=== PATIENT | female | born 1995 | race Two or more races ===

== ENCOUNTER 2024-05-13 20:01 | Emergency (ER) | payer MEDICAID, SELFPAY ==
[2024-05-13 20:02] VITALS: BMI 28.9
[2024-05-13 20:47] VITALS: BP 152/91; PULSE 88; RESP 20; TEMP 36.9; O2SAT 99
--- NOTE | 2024-05-13 21:01 | EDNOTE_ITS ---
<Statement entered by Marcie Sanchez MD - 05/14/24 19:43> As co-signing physician, I was present and available for consult prn. I concur with the plan and care as documented by the midlevel provider. ED General RME/HPI General Chief complaint: General Adult/Misc Complain Stated complaint: PT TOOK TO MANY PILLS Time Seen by Provider: 05/13/24 20:53 Source: patient Arrival date/time: 05/13/24 20:01 28-year-old female presents emergency department reporting taking vitamin D2 1.25 mg a total of 9 doses daily and was supposed to be taking a weekly. Patient denies any fever, chills, cough, chest pain, shortness of breath, nausea vomiting, diarrhea, or any other associated symptom. Patient just endorses shakiness and anxious. Poison control called with any reported unlikely to cause acute symptoms but may check CMP panel with electrolytes and phosphorus and if those are okay can be safely discharged home and follow-up with primary care provider. Mode of arrival: ambulatory Limitations: no limitations Related Data Home Medications ?Medication ?Instructions ?Recorded ?Confirmed No Known Home Medications 06/21/18 06/21/18 Allergies Allergy/AdvReac Type Severity Reaction Status Date / Time No Known Allergies Allergy Verified 06/20/18 23:04 Review of Systems Review of Systems Systems Reviewed: All systems reviewed, normal except as documented Constitutional Constitutional: Reports system reviewed and no additional complaints, except as documented, Denies body ache(s), Denies chills and Denies fever(s) Eyes Eyes: Reports system reviewed and no additional complaints, except as documented and Denies change in vision ENT Ears, Nose, Mouth, and Throat: Reports system reviewed and no additional complaints, except as documented, Denies disequilibrium, Denies dizziness, Denies sore throat and Denies vertigo Cardiovascular Cardiovascular: Reports system reviewed and no additional complaints, except as documented, Denies chest pain and Denies dyspnea Respiratory Respiratory: Reports system reviewed and no additional complaints, except as documented, Denies chest congestion, Denies cough and Denies dyspnea Gastrointestinal Gastrointestinal: Reports system reviewed and no additional complaints, except as documented, Denies abdominal pain, Denies nausea and Denies vomiting Musculoskeletal Musculoskeletal: Reports system reviewed and no additional complaints, except as documented, Denies abnormal gait and Denies arthralgias Integumentary/Breasts Skin/Breast: Reports system reviewed and no additional complaints, except as documented, Denies erythema, Denies rash and Denies wounds Neurologic Neurologic: Reports system reviewed and no additional complaints, except as documented, Denies abnormal gait, Denies disequilibrium, Denies dizziness and Denies vertigo Psychiatric Psychiatric: Reports anxiety and Reports other (Shaky) Past Medical History Past Medical History CARDIAC: Negative Congestive Heart Failure RESPIRATORY: Negative Chronic Obstructive Pulmonary Disease (COPD) GENITOURINARY: Negative Renal Disease ENDOCRINE: Negative Diabetes Mellitus Type 1 or Diabetes Mellitus Type 2 Social History SMOKING STATUS: Never smoker ED Exam General Limitations: Present no limitations General appearance: Present alert and in no apparent distress Head Head exam: Present atraumatic Eye Eye exam: Present normal appearance, PERRL and EOMI ENT ENT exam: Present normal exam, normal oropharynx and mucous membranes moist Neck Neck exam: Present normal inspection, full ROM and trachea midline Chest Chest inspection: Present normal inspection and symmetric chest wall rise Respiratory Respiratory exam: Present normal lung sounds bilaterally Cardiovascular Cardiovascular exam: Present regular rate, normal rhythm and normal heart sounds Abdominal Exam Abdominal exam: Present soft and normal bowel sounds Extremities Exam Extremities exam: Present normal inspection and full ROM Back Exam Back exam: Present normal inspection and full ROM Neurological Exam Neurological exam: Present alert, oriented X3 and CN II-XII intact Psychiatric Psychiatric exam: Present normal affect and normal mood Skin Skin exam: Present warm, dry, intact and normal color Course Quality Measures none Orders Category Date Time Status CBC Stat Lab 05/13/24 21:17 Completed CMP [Comprehensive Metabolic Panel] Stat Lab 05/13/24 21:17 Completed Mag [Magnesium] Stat Lab 05/13/24 21:17 Completed Phosphorous Stat Lab 05/13/24 21:17 Completed Vital Signs Vital signs: Vital Signs Temperature 98.4 F 05/13/24 20:47 Pulse Rate 88 05/13/24 20:47 Respiratory Rate 20 05/13/24 20:47 Blood Pressure 152/91 H 05/13/24 20:47 Pulse Oximetry (%) 99 05/13/24 20:47 Oxygen Delivery Method Room Air 05/13/24 20:47 99% room air within normal limits MDM Patient data External records reviewed:: [facility] previous records Clinical information provided by:: patient Social determinants that could affect healthcare access:: none Patient has the following chronic illnesses:: See chart How is presenting disease/condition affected by chronic disease/condition?: u neffected by Evaluation data The following diagnostics were reviewed and interpreted by me:: lab results Lab and/or radiology exams considered but not ordered:: Ordered Interpretation Summary: Interpreted by me Medications Medications considered but not ordered:: N/A Medication administrations:: N/A Consultations Consultation(s) initiated? (list below): No Diagnosis Differential Diagnosis ED Complaint MDM: Medication overdose Most likely diagnosis given after review of the tests above:: Accidental drug ingestion Admission Indicated Admission indicated?: not indicated Explain why admission is indicated or not indicated:: No admission criteria Admission Request Was there a request for admission?: No Disposition Plan Disposition Plan: Discharge Discharge Attestation Discharge Attestation: The patient and all family members were given an opportunity to ask questions and understood the discharge instructions. Discharge instructions specifically effects, indications for sooner follow up or return to the emergency department, and the expected course of current diagnosis. Patient condition: Stable Medical Decision Making MDM Narrative MDM Narrative: 28-year-old female presents emergency department reporting taking vitamin D2 1.25 mg a total of 9 doses daily and was supposed to be taking a weekly. Patient denies any fever, chills, cough, chest pain, shortness of breath, nausea vomiting, diarrhea, or any other associated symptom. Patient just endorses shakiness and anxious. Poison control called with Manuel reported unlikely to cause acute symptoms but may check CMP panel with electrolytes and phosphorus and if those are okay can be safely discharged home and follow-up with primary care provider. Patient denies any SI or HI. CBC was unremarkable. CMP was unremarkable for any electrolyte abnormalities or elevated LFTs. Patient discharged and instructed to stop taking vitamin D until seen by primary care provider. Instructed to return to emergency department for any worsening symptoms or as needed. Differential Diagnosis Differential Diagnosis: Medication overdose Lab Data 05/13/24 21:17 05/13/24 21:17 Labs: Lab Results 05/13/24 Range/Units 21:17 WBC 12.8 H (3.6-11.0) Thou/mm3 RBC 4.60 (4.00-5.20) Miln/mm3 Hgb 13.2 (12.0-16.0) g/dL Hct 40.8 (36.0-46.0) % MCV 89 (80-100) fL MCH 28.7 (25.0-35.0) pg MCHC 32.4 (31.0-37.0) g/dl RDW Std Deviation 44.8 (36.4-46.3) fL Plt Count 300 (140-440) Thou/mm3 Neut % (Auto) 54 (37-80) % Lymph % (Auto) 35 (10-50) % [place] % (Auto) 9 (0-12) % Eos % (Auto) 2 (0-10) % Baso % (Auto) 1 (0-2.5) % Neut # (Auto) 6.8 (1.8-7.7) Thou/mm3 Lymph # (Auto) 4.5 (1.0-4.8) Thou/mm3 [place] # (Auto) 1.1 H (0.0-0.8) Thou/mm3 Eos # (Auto) 0.2 (0.0-0.5) Thou/mm3 Baso # (Auto) 0.1 (0.0-0.2) Thou/mm3 Immature Gran # (Auto) 0.04 H (0.00-0.00) Thou/mm3 Absolute Nucleated RBC 0.00 (0.00-0.00) Thou/mm3 Immature Gran % 0 (0-0) % Nucleated RBC % 0 (0) /100 WBC Sodium 137 (136-145) mMol/L Potassium 4.1 (3.4-5.1) mMol/L Chloride 104 (98-107) mMol/L Carbon Dioxide 26.8 (20.0-31.0) mMol/L Anion Gap 6 L (7-16) BUN 15 (9-23) mg/dL Creatinine 0.8 (0.6-1.3) mg/dL Estim Creat Clear Calc 90.3 (>60) mL/min eGFR > 60 (60 - ) See Note BUN/Creatinine Ratio 19 (12-20) Ratio Glucose 93 (74-106) mg/dL Calculated Osmolality 274 L (275-295) Calcium 9.7 (8.3-10.6) mg/dL Corrected Calcium 9.7 (8.5-10.1) mg/dL Phosphorus 3.0 (2.4-5.1) mg/dL Magnesium 2.2 (1.6-2.6) mg/dL Total Bilirubin 0.4 (0.3-1.2) mg/dL AST 18 (0-34) U/L ALT 18 (10-49) U/L Alkaline Phosphatase 90 (46-116) U/L Total Protein 7.7 (5.7-8.2) gm/dL Albumin 5.0 (3.5-5.0) gm/dL Globulin 2.7 (2.3-3.5) gm/dL Albumin/Globulin Ratio 1.9 (1.2-2.2) Discharge Plan Plan Patient Disposition: HOME (Self Care) Disposition Comment: Stable Prescriptions/Referrals Prescriptions/Med Rec: No Action No Known Home Medications Referrals: Temporary Provider,ED [Physician] - In 1 week Problem List Clinical Impression: Accidental drug ingestion Patient/Caregiver Discharge Instructions Discharge Activity: activity as tolerated Education Materials: ED Accidental Ingestion Nontoxic Adult Additional Instructions: Stop taking vitamin D until instructed by primary care provider. Follow-up with primary care provider in 2 to 3 days. Return to the emergency department for any worsening symptoms or as needed. Print Language: Dominican Stand Alone Forms: Maryann Award Info., Patient Portal Info Letter PA/CARSON Supervising Physician PA/CARSON Supervising Physician: Dr. Sanchez
[2024-05-13 21:55] LABS: Alanine Aminotransferase 18 U/L (10-49); Albumin/Globulin Ratio 1.9 (1.2-2.2); Alkaline Phosphatase 90 U/L (46-116); Anion Gap 6 (7-16); Aspartate Amino Transferase 18 U/L (0-34); BUN/Creatinine Ratio 19 Ratio (12-20); Bilirubin,Total 0.4 mg/dL (0.3-1.2); Blood Urea Nitrogen 15 mg/dL (9-23); Calcium 9.7 mg/dL (8.3-10.6); Calcium (Corrected) 9.7 mg/dL (8.5-10.1); Carbon Dioxide 26.8 mMol/L (20.0-31.0); Chloride 104 mMol/L (98-107); Creatinine (Component) 0.8 mg/dL (0.6-1.3); Estimated Creatinine Clearance 90.3 mL/min (>60); Globulin 2.7 gm/dL (2.3-3.5); Glucose 93 mg/dL (74-106); Magnesium 2.2 mg/dL (1.6-2.6); Osmolality,Calculated 274 (275-295); Potassium 4.1 mMol/L (3.4-5.1); Sodium 137 mMol/L (136-145); Total Protein 7.7 gm/dL (5.7-8.2); eGFR > 60 See Note
[2024-05-13 22:13] LABS: Basophils # (Auto) 0.1 Thou/mm3 (0.0-0.2); Basophils % (Auto) 1 % (0-2.5); Eosinophils # (Auto) 0.2 Thou/mm3 (0.0-0.5); Eosinophils % (Auto) 2 % (0-10); Hematocrit 40.8 % (36.0-46.0); Hemoglobin 13.2 g/dL (12.0-16.0); Immature Granulocytes % (Auto) 0 % (0-0); Immature Granulocytes Auto 0.04 Thou/mm3 (0.00-0.00); Lymphocytes # (Auto) 4.5 Thou/mm3 (1.0-4.8); Lymphocytes % (Auto) 35 % (10-50); Mean Corpuscular HGB Conc 32.4 g/dl (31.0-37.0); Mean Corpuscular Hemoglobin 28.7 pg (25.0-35.0); Mean Corpuscular Volume 89 fL (80-100); Monocytes # (Auto) 1.1 Thou/mm3 (0.0-0.8); Monocytes % (Auto) 9 % (0-12); Neutrophils # (Auto) 6.8 Thou/mm3 (1.8-7.7); Neutrophils % (Auto) 54 % (37-80); Nucleated Red Blood Cell % 0 /100 WBC (0); Platelet Count 300 Thou/mm3 (140-440); RDW Standard Deviation 44.8 fL (36.4-46.3); White Blood Count 12.8 Thou/mm3 (3.6-11.0)
== END 2024-05-13 22:42 | disposition home or self-care (01) ==
PROVIDERS: Emergency Provider Emergency Medicine; PCP Family Medicine
DX: F41.9 Anxiety disorder, unspecified (principal); T45.2X5A Adverse effect of vitamins, initial encounter
CPT/HCPCS: 36415; 80053; 83735; 84100; 85025; 99283

== ENCOUNTER 2024-05-25 23:30 | Day surgery (SDC) | payer MEDICAID, SELFPAY ==
[2024-05-25 23:30] VITALS: BMI 24.6
[2024-05-25 23:41] VITALS: BP 132/87; PULSE 122; RESP 18; TEMP 38.8; O2SAT 98
--- NOTE | 2024-05-25 23:55 | PD.EDRME ---
Rapid Medical Screening Exam [facility] Arrival date/time: 05/25/24 23:30 28F with no significant PMH presents to ED with 1 week of N/V, gen ab cramping/pain, and non-bloody diarrhea. Patient denies dysuria and URI symptoms. Chief Complaint: Nausea/Vomiting/Diarrhea Vital signs: Vital Signs Temperature 102 F H 05/25/24 23:41 Pulse Rate 122 H 05/25/24 23:41 Respiratory Rate 18 05/25/24 23:41 Blood Pressure 132/87 H 05/25/24 23:41 Pulse Oximetry (%) 98 05/25/24 23:41 Oxygen Delivery Method Room Air 05/25/24 23:41
[2024-05-26] VITALS (16 sets, daily range): BP systolic 103–135; BP diastolic 58–83; PULSE 96–116; RESP 16–29; TEMP 36.7–38.8; O2SAT 95–99
--- NOTE | 2024-05-26 00:07 | XR_ITS ---
Examination: PA chest single view TECHNIQUE: Upright PA chest single view Exam date and time: May 26, 2024 1229 hours INDICATIONS: Fever today. FINDINGS: Normal heart size Lungs are clear. The osseous structures are intact IMPRESSION: No active disease
--- NOTE | 2024-05-26 00:07 | XR_ITS ---
Examination: CT abdomen with intravenous contrast CT pelvis with intravenous contrast 2-D coronal reconstructions 2-D sagittal reconstructions Date and time of exam:May 26, 2024 0123 hours INDICATIONS: Nausea vomiting upper abdominal pain and fever beginning 6 days ago. CTDI: vol (mGy) 6.75 DLP: (mGycm) 397 Technique: Multiple axial sections of the abdomen and pelvis have been obtained. 64 slice high-resolution scanner used. 3 mm axial sections have been obtained, post intravenous injection 60 cc [id number] 2-D sagittal, coronal reconstructions obtained. Low dose protocols were performed. One or more of the following dose reduction techniques were used; automated exposure control, adjustment of the mA and/or KV according to patient size, use of iterative reconstruction technique. Findings: Diffuse fatty infiltration throughout the liver Contracted gallbladder Spleen not enlarged No pancreatic mass No renal or ureteral calculi Proximal appendix is fluid-filled and thickened, 8 mm No pelvic abscess Intact urinary bladder IMPRESSION: Proximal appendix is fluid-filled and thickened up to 8 mm, consider early appendicitis, clinical correlation advised
--- NOTE | 2024-05-26 00:08 | XR_ITS ---
Examination: Abdomen sonogram, Limited Date and time of exam: May 26, 2024 12:33 AM INDICATIONS: Epigastric pain and nausea beginning 6 days ago Technique: Real-time lei scale transabdominal sonographic images of the upper abdomen obtained. Findings: Normal gallbladder Normal common bile duct 0.3 cm Pancreatic head 2.9 cm Liver 16.9 cm fatty infiltration lobular contour no focal liver lesions Normal hepatopedal portal venous flow Patent IVC IMPRESSION: Normal gallbladder Mild hepatomegaly fatty infiltration suspect primary hepatocellular disease
[2024-05-26] MEDS: ACETAMINOPHEN 500 MG TABLET 1000 MG PO (00:25)
[2024-05-26] MEDS: ONDANSETRON INJ 2 MG/ML INJ 2 ML 4 MG IV (00:25)
[2024-05-26] MEDS: KETOROLAC INJ 30 MG/ML VIAL IVP (00:25)
[2024-05-26] MEDS: SODIUM CHLORIDE 0.9% 1000 ML 1,000 ML 999 ML IV (00:26)
[2024-05-26 00:27] LABS: Collection Type, Urine Clean Catch
[2024-05-26 00:34] LABS: Bilirubin,Urine Negative (Negative); Blood,Urine Trace (Negative); Clarity,Urine Clear (Clear/Hazy); Color,Urine Lt-Yellow (Lt Yel-Yel); Culture Indicated,Urine Not Indicated; Glucose, Urine Negative (Negative); Ketones,Urine Negative (Negative); Leukocyte Esterase,Urine Positive (Negative); Nitrite,Urine Negative (Negative); Protein,Urine Trace (Neg - Trace); RBC,Urine 3 /hpf (0-3); Specific Gravity,Urine 1.023 (1.001-1.035); Squamous Epithelial Cell,Urine 8 /hpf (0-5); Urobilinogen,Urine Negative mg/dL (0.0-1.0); WBC,Urine 5 /hpf (0-5)
[2024-05-26 00:44] LABS: Lactate (Lactic Acid) 2.2 mMol/L (0.4-2.0)
[2024-05-26 00:45] LABS: Basophils # (Auto) 0.1 Thou/mm3 (0.0-0.2); Basophils % (Auto) 1 % (0-2.5); Eosinophils % (Auto) 0 % (0-10); Hematocrit 42.1 % (36.0-46.0); Immature Granulocytes % (Auto) 1 % (0-0); Immature Granulocytes Auto 0.08 Thou/mm3 (0.00-0.00); Lymphocytes # (Auto) 1.7 Thou/mm3 (1.0-4.8); Lymphocytes % (Auto) 13 % (10-50); Mean Corpuscular HGB Conc 33.3 g/dl (31.0-37.0); Mean Corpuscular Hemoglobin 28.7 pg (25.0-35.0); Mean Corpuscular Volume 86 fL (80-100); Monocytes # (Auto) 0.9 Thou/mm3 (0.0-0.8); Monocytes % (Auto) 7 % (0-12); Neutrophils # (Auto) 10.9 Thou/mm3 (1.8-7.7); Neutrophils % (Auto) 80 % (37-80); Nucleated Red Blood Cell % 0 /100 WBC (0); Platelet Count 303 Thou/mm3 (140-440); Red Blood Count 4.87 Miln/mm3 (4.00-5.20); White Blood Count 13.8 Thou/mm3 (3.6-11.0)
[2024-05-26 00:46] LABS: HCG Qualitative,Urine Negative
[2024-05-26 00:48] LABS: Amphetamine/Methamp Scrn,U Negative (Negative); Barbiturate Screen,Urine Negative (Negative); Benzodiazepines Screen,Urine Negative (Negative); Benzoylecgonine Screen, Ur Negative (Negative); Fentanyl Screen,Urine Negative (Negative); Opiate Screen,Urine Negative (Negative); THC Screen,Urine Negative (Negative)
[2024-05-26 00:58] LABS: Sed Rate (ESR) 30 mm/hr (0-20)
[2024-05-26 01:08] LABS: Alanine Aminotransferase 24 U/L (10-49); Albumin, Serum 5.1 gm/dL (3.5-5.0); Albumin/Globulin Ratio 1.6 (1.2-2.2); Alkaline Phosphatase 114 U/L (46-116); Anion Gap 11 (7-16); Aspartate Amino Transferase 29 U/L (0-34); BUN/Creatinine Ratio 10 Ratio (12-20); Bilirubin,Total 0.6 mg/dL (0.3-1.2); Blood Urea Nitrogen 8 mg/dL (9-23); Calcium 9.8 mg/dL (8.3-10.6); Calcium (Corrected) 9.8 mg/dL (8.5-10.1); Carbon Dioxide 22.8 mMol/L (20.0-31.0); Chloride 103 mMol/L (98-107); Creatinine (Component) 0.8 mg/dL (0.6-1.3); Globulin 3.1 gm/dL (2.3-3.5); Glucose 100 mg/dL (74-106); Lipase 51 U/L (12-53); Magnesium 1.7 mg/dL (1.6-2.6); Osmolality,Calculated 272 (275-295); Potassium 3.9 mMol/L (3.4-5.1); Sodium 137 mMol/L (136-145); Total Protein 8.2 gm/dL (5.7-8.2); eGFR > 60 See Note
[2024-05-26 01:24] LABS: Amylase 84 U/L (30-118); Procalcitonin 0.18 ng/ml (0.0-0.49)
--- NOTE | 2024-05-26 01:54 | PRELIM_ITS ---
Gallbladder ultrasound with doppler and wave doppler spectral analysis. May 26, 2024 at 0033 sanjeev rs Clinical history: Right upper quadrant tenderness Comparison: No prior study is available for fadumo harris. Findings:The visualized liver is enlarged and demonstrates increased echogenicity. No gallbla dder calculus, wall thickening or pericholecystic fluid is identified. The common duct is normal in c aliber at 2.6 mm. No free fluid is demonstrated on the submitted images.The right kidney is within no rmal limits.The pancreas is within normal limits.The portal vein is patent with hepatopetal flow and normal wave Doppler spectral analysis.The hepatic veins are patent with normal wave Doppler spectral analysis.Carmichael sign is not available at the time of this report.Impression:Hepatomegaly associated w ith liver steatosis is suspicious for steatohepatitis.No evidence of cholecystitis. Report Electronic ally Signed By: Brett Grigsby 05/26/2024 1:53:14 AM [EST]
--- NOTE | 2024-05-26 03:06 | PRELIM_ITS ---
CT scan of the abdomen and pelvis with intravenous contrast (axial sections with sagittal and coronal reformats). May 26, 2024 at 0123 hoursClinical History: Upper abdominal pain and feverCorrelate d with the prior US study dated May 26, 2024.Findings:The lung bases are clear.The gallbladder, pancreas, spleen, kidneys and adrenals are unremarkable.Hepatomegaly.No evidence of bowel obstruction .Thickening of the appendix, measuring up to 1.1 cm, no peripheral fat stranding, no perforation or n o collections.There is no mesenteric or retroperitoneal adenopathy.The urinary bladder is unremarkabl e. There is no free fluid or free air.The osseous structures are unremarkable.Fluid stools throughout the colon. No pericolonic fat stranding. Mild colonic wall thickening.Impression:1. Findings are hig hly suspicious for early acute appendicitis. Surgical consult is recommended.2. Possible mild colitis .3. Hepatomegaly. Report Electronically Signed By: Brett Grigsby 05/26/2024 2:18:04 AM [EST]
[2024-05-26 03:41] LABS: Reflex Lactate? Y
[2024-05-26] MEDS: PIPER/TAZO INJ 3.375 GM in SODIUM CHLORIDE 0.9% (P) 50 ML IV (04:05)
[2024-05-26] MEDS: MORPHINE SULF INJ 10 MG/ML VIAL 5 MG IVP (04:09)
[2024-05-26 04:13] LABS: Lactic Acid, 3 HR 1.9 mMol/L (0.4-2.0)
--- NOTE | 2024-05-26 05:09 | EDNOTE_ITS ---
ED Abdominal Pain RME/HPI General Chief Complaint: Nausea/Vomiting/Diarrhea Stated complaint: N/V/D X 6 DAYS Time seen by provider: 05/26/24 00:03 Arrival date/time: 05/25/24 23:30 RME / HPI RME / HPI narrative: 05/25/24 23:30 28F with no significant PMH presents to ED with 1 week of N/V, gen ab cramping/pain, and non-bloody diarrhea. Patient denies dysuria and URI symptoms. This section includes all my notes and documentations, including HPI, PE, and ED course. Remy Hogan MD HPI: 28-year-old female here to be evaluated with abdominal pain and nausea and vomiting for the past several days, extremely severe in the past few hours. She has trouble localizing the abdominal pain, points to epigastric region and lower quadrants. When eating, she reports severe nausea and vomiting. She reports subjective fever and chills. No cough or congestion. No urinary symptoms. No history of abdominal surgery. No other complaints. ROS: All negative except as documented in HPI. Physical Exam: General: Alert and oriented. In obvious pain and dry heaving. Fever noted. Eyes: Conjunctivae and lids clear. ENT: No nasal congestion. Pharynx normal. TM normal bilaterally. Neck: Supple. Heart: RRR. Lungs: No respiratory distress. Good air movement. No rhonchi, wheezing, rales. Abdomen: Soft with difficult to localize tenderness. Decreased bowel sounds. No distension. No obvious rebound or guarding. Back: No CVA tenderness. Skin: Warm and dry. Neuro: Alert and oriented X 3. I reviewed all diagnostic test results. My review of the abdominal CT report is appendicitis. My review of the GB ultrasound report is no acute findings. Blood tests and urine tests remarkable for WBC 13.8. At this point, diagnoses include appendicitis. Treatment here included IV fluid, Zofran 4 mg IV, Toradol 30 mg IV, Tylenol 1000 mg IV, morphine 5 mg IV, and Zosyn 3.375 g IV. I discussed the case with our surgeon, Dr. Sneed. About the presentation and exam and diagnostics and treatments here. And need of further care in the hospital. Will evaluate the patient in the ED. At 6 AM on 05/26/2024, the care of the patient was transferred to Dr. THOAMS. Remy Hogan MD Related Data Home Medications ?Medication ?Instructions ?Recorded ?Confirmed No Known Home Medications 06/21/18 06/21/18 Allergies Allergy/AdvReac Type Severity Reaction Status Date / Time No Known Allergies Allergy Verified 05/25/24 23:33 Course Quality Measures none Orders Category Date Time Status Bedside COVID-19 Antigen Test NOW Care 05/26/24 00:07 Active Bedside Influenza A&B Antigen Test NOW Care 05/26/24 00:[address] Screening NOW Care 05/26/24 00:07 Active Insert IV NOW Care 05/25/24 23:54 Active NPO NOW Care 05/26/24 03:20 Active Consult to General Surgery Stat Cons 05/26/24 04:23 Ordered Diet NPO (NOW) Diet 05/26/24 03:[address] abdomen pelvis w con Stat Exams 05/26/24 00:07 Taken US gall bladder Stat Exams 05/26/24 00:08 Taken XR chest 1V portable Stat Exams 05/26/24 00:07 Taken Amylase Stat Lab 05/26/24 00:20 Completed Blood Culture (Lab) Stat Lab 05/25/24 23:54 Received CBC Stat Lab 05/25/24 23:54 Completed CMP [Comprehensive Metabolic Panel] Stat Lab 05/25/24 23:54 Completed CRP [C-Reactive Protein] Stat Lab 05/26/24 00:20 Completed Drug Screen,Urine Stat Lab 05/26/24 00:07 Completed ESR [Sed Rate (ESR)] Stat Lab 05/26/24 00:20 Completed HCG Qualitative,Urine Stat Lab 05/26/24 00:07 Completed Lactate (Lactic Acid) Stat Lab 05/25/24 23:54 Completed Lactic Acid, 3 HR Stat Lab 05/26/24 03:54 Completed Lipase Stat Lab 05/25/24 23:54 Completed Magnesium Stat Lab 05/26/24 00:20 Completed Procalcitonin Stat Lab 05/25/24 23:54 Completed Urinalysis, C/S if Indicated Stat Lab 05/26/24 00:07 Completed Acetaminophen Tab [Tylenol ES Tab] Med 05/25/24 23:54 Discontinued 1,000 mg PO X1 ONE Ketorolac Inj [Toradol Inj] Med 05/26/24 00:06 Discontinued 30 mg IVP X1 ONE Morphine Inj Med 05/26/24 04:03 Discontinued 5 mg IVP X1 ONE Ondansetron Inj [Zofran Inj] Med 05/25/24 23:54 Discontinued 4 mg IV X1 ONE Piper/Tazo Inj [Zosyn Inj] 3.375 gm Med 05/26/24 03:19 Discontinued Sodium Chloride 0.9% (P) [Ns 0.9% (P)] 50 ml IV X1 Sodium Chloride 0.9% 1000 ml [Ns] 1,000 ml Med 05/25/24 23:54 Discontinued IV 999 mls/hr Vital Signs Vital signs: Vital Signs Temperature 102 F H 05/25/24 23:41 Pulse Rate 122 H 05/25/24 23:41 Respiratory Rate 18 05/25/24 23:41 Blood Pressure 132/87 H 05/25/24 23:41 Pulse Oximetry (%) 98 05/25/24 23:41 Oxygen Delivery Method Room Air 05/25/24 23:41 Abdominal Pain MDM Patient data External records reviewed:: None Clinical information provided by:: patient Social determinants that could affect healthcare access:: none Patient has the following chronic illnesses:: None How is presenting disease/condition affected by chronic disease/condition?: no chronic disease Evaluation data The following diagnostics were reviewed and interpreted by me:: lab results and radiology exam(s) Lab and/or radiology exams considered but not ordered:: Open none Interpretation Summary: Appendicitis Medications / Prescriptions Medications or Prescriptions considered but not ordered:: None Medication administrations:: Medication Administration History Discontinued Medications Acetaminophen (Acetaminophen 500 Mg Tablet) 1,000 mg PO X1 ONE Stop: 05/25/24 23:55 Last Admin: 05/26/24 00:25 Dose: 1,000 mg Documented By: OLEG Sodium Chloride (Ns) 1,000 mls @ 999 mls/hr IV .Q1H1M ONE Stop: 05/26/24 00:54 Last Infusion: 05/26/24 01:11 Dose: Infused Documented By: Admin: 05/26/24 00:26 Dose: 999 mls/hr Documented By: OLEG Piperacillin Sod/Tazobactam (Sod 3.375 gm/ Sodium Chloride) 50 mls @ 100 mls/hr IV X1 ONE Stop: 05/26/24 03:48 Last Admin: 05/26/24 04:05 Dose: 100 mls/hr Documented By: KAIDEN Ketorolac Tromethamine (Ketorolac Inj 30 Mg/Ml Vial) 30 mg IVP X1 ONE Stop: 05/26/24 00:07 Last Admin: 05/26/24 00:25 Dose: 30 mg Documented By: OLEG Morphine Sulfate (Morphine Sulf Inj 10 Mg/Ml Vial) 5 mg IVP X1 ONE Stop: 05/26/24 04:04 Last Admin: 05/26/24 04:09 Dose: 5 mg Documented By: KAIDEN Ondansetron HCl (Ondansetron Inj 2 Mg/Ml Inj 2 Ml) 4 mg IV X1 ONE; Protocol Stop: 05/25/24 23:55 Last Admin: 05/26/24 00:25 Dose: 4 mg Documented By: OLEG IV fluid and Zofran and Toradol and Tylenol and morphine and Zosyn Consultations Consultation(s) initiated? (list below): Yes Consultation #1 (Physician, Specialty, Details): Surgery (Dr. Sneed)--will evaluate the patient in ED Diagnosis Differential diagnosis abdominal pain: acute appendicitis, calculus of kidney, constipation, diverticulitis, endometriosis, gastroenteritis, pancreatitis and small bowel obstruction Most likely diagnosis given after review of the tests above:: Appendicitis Admission Indicated Admission indicated?: indicated Explain why admission is indicated or not indicated:: Appendicitis Admission Request Was there a request for admission?: No Disposition Plan Disposition Plan: other (specify) (Waiting for Dr. Sneed, our surgeon, to evaluate the patient in the ED) Discharge Plan Prescriptions/Referrals Prescriptions/Med Rec: No Action No Known Home Medications Referrals: Julien Keene MD [Primary Care Provider] - In 1 week Problem List Clinical Impression: Acute appendicitis Patient/Caregiver Discharge Instructions Print Language: Frisian
--- NOTE | 2024-05-26 06:52 | PC.NURSE ---
Pt nasleep arouises easily. denies pain at this time. Family at bedside
--- NOTE | 2024-05-26 07:39 | PC.NURSE ---
Pt lying on stretcher w/mom, denies any pain or discomfort at this time, states she is feeling better at this time. Call monterio in reach, pt able to make needs known
[2024-05-26] MEDS: KCL 20 mEq/L in D5-1/2NS 20 MEQ/1,000 ML BAG 75 MEQ IV (08:24)
--- NOTE | 2024-05-26 08:48 | PD.EDADDENDU ---
Emergency Room Addendum <Odalys Sanches - Last Filed: 05/26/24 08:49> Addendum Narrative: 1800: Care assumed from Dr. Ballard, the previous shift emergency physician. Past medical, surgical, social and family history reviewed. Vitals and home medications reviewed. I will assume the care of the patient at this time. Please refer to the emergency department record for history and examination from initial visit.? Physical exam by me shows patient under no acute distress at this time. 2042 leigh <Marcie Sanchez MD - Last Filed: 05/26/24 11:10> Addendum Narrative: 1800: Care assumed from Dr. Hogan, the previous shift emergency physician. Past medical, surgical, social and family history reviewed. Vitals and home medications reviewed. I will assume the care of the patient at this time. Please refer to the emergency department record for history and examination from initial visit.? Physical exam by me shows patient under no acute distress at this time. Dr. Sneed will evaluate the patient in the emergency room Patient evaluated by Dr. Sneed. Plan for surgery. Admitted to Dr. Sneed.
--- NOTE | 2024-05-26 10:21 | PC.CC ---
Patient is a 28 year-old female who presents with Acute Appendicitis. Catalina HOFF made [id number] contact with patient. ASW introduced self, role, and reason for visit. Patient appeared alert and oriented to self, location, and situation. Patient was pleasant and engaged in initial assessment. Patient confirmed information on demographics and reports to living with her mother Leonor Calderon. Patient is employed at [employer]. Prior to being admitted the patient was able to ambulate independently and is able to complete her own ADLs. Patient does not require any DME. Primary care provider is Julien Keene. Patient's next of kin is sister, Panfilo Christian . Upon discharge the patient plans to return home. surgical services assistant to follow-up with any discharge needs.
[2024-05-26] MEDS: ACETAMINOPHEN 325 MG TABLET 650 MG PO (14:21)
--- NOTE | 2024-05-26 14:57 | PD.SURHP ---
HPI Date of Admission 05/26/2024 Chief Complaint Chief Complaint: Right lower quadrant abdominal pain with nausea and vomiting HPI 28-year-old female presented to the emergency department with acute onset of abdominal pain. She has had intermittent abdominal pain for the past few weeks. Since yesterday she started having epigastric and periumbilical pain that was initially intermittent. Her pain then become persistent, progressively worse and localized over right lower quadrant. She has had nausea and vomiting, but denies fever, chills, diarrhea, dysuria or constipation. She denies recent history of trauma and she has not had similar symptoms in the past. Review of Systems Constitutional Constitutional: Denies chills and Denies fever(s) Cardiovascular Cardiovascular: Denies chest pain Respiratory Respiratory: Denies cough Gastrointestinal Gastrointestinal: Reports abdominal pain, Reports nausea and Reports vomiting Genitourinary Genitourinary: Denies difficulty voiding Hematologic/Lymphatic Hematologic/Lymphatic: Denies easy bleeding and Denies easy bruising Past Medical History Surgical History OTHER SURGICAL HX: No surgeries in the past Social History SMOKING STATUS: Never smoker SUBSTANCE USE: does not use ALCOHOL: Never Meds Home Medications and Allergies Home Medications ?Medication ?Instructions ?Recorded ?Confirmed ?Type No Known Home Medications 06/21/18 06/21/18 History Allergies Allergy/AdvReac Type Severity Reaction Status Date / Time No Known Allergies Allergy Verified 05/25/24 23:33 Exam Vital Signs Temp Pulse Resp BP Pulse Ox O2 Del Method 101.9 F H 107 H 18 135/77 H 99 Room Air 05/26/24 14:21 05/26/24 14:11 05/26/24 14:11 05/26/24 14:11 05/26/24 14:11 05/26/24 14:11 Constitutional Constitutional: no acute distress Routine Respiratory Exam Respiratory: Present CTA bilaterally Routine Cardiovascular Exam Cardiovascular: Present RRR Routine Abdominal Exam Abdominal: Present soft, normoactive bowel sounds and tenderness (Right lower quadrant tenderness to palpation with guarding, no rebound tenderness or peritonitis at this time); Absent distended Results Results: Laboratory Laboratory results: results reviewed Results: Imaging CT scan - abdomen: report reviewed and image reviewed CT scan - pelvis: report reviewed and image reviewed Assessment & Plan Problem List (1) Acute appendicitis: Qualifiers: Acute appendicitis type: unspecified acute appendicitis type Qualified Code(s): K35.80 - Unspecified acute appendicitis Status: Acute Plan Will plan for laparoscopic possible open appendectomy. Risks include but not limited to infection, bleeding, injury to bowel, bladder, uterus, ovaries, surround neurovascular structures, abdominal sepsis and or abdominal abscess discussed with the patient. Benefits and alternatives explained to her, all her questions answered, she agreed and consented to proceed with the operation. Quality Measures Quality Measures none
--- NOTE | 2024-05-26 15:43 | PD.SUROPNT ---
Date of Procedure 05/26/24 Pre Op Diagnosis Acute appendicitis Post Op Diagnosis Acute appendicitis Procedure Laparoscopic appendectomy Findings Hyperemic and mildly inflamed appendix without perforation Procedure Description Patient was brought into the operating room in supine position. After administration of general endotracheal anesthesia, abdomen was prepped and draped in standard surgical manner. A Veress needle was inserted through the umbilicus and pneumoperitoneum was obtained up to 15 mmHg. The Veress needle was removed and a 5 mm umbilical incision was made. A 5 mm trocar was placed and laparoscopic camera was inserted. Under direct visualization a laparoscopic camera a 5 mm trocar placed in suprapubic region and a 10 mm trocar placed in left lower quadrant. The abdomen was inspected, the cecum was identified and followed until the appendix was identified. The appendix was noted to be mildly inflamed and hyperemic without perforation. A window was created between the appendix and mesoappendix and the appendix was divided near the appendix and cecal junction with blue Endo ESTHELA stapling device. The mesoappendix was divided with lei Endo ESTHELA stapling device. The appendix was placed inside an Endo Catch and removed from the abdomen utilizing left lower quadrant trocar site. Abdomen and pelvis copiously and thoroughly washed and irrigated, all the fluids were suctioned and the suctioned fluid returned clear. Hemostasis was adequate and satisfactory, staple lines were intact without bleeding or any leakage. Left lower quadrant trocar sites fascial defect was closed with 0 Vicryl using Endo closure device. Instruments and trocars removed, pneumoperitoneum was evacuated and the incisions closed with 4-0 Monocryl subcuticular fashion. Instruments, needles and sponge counts were reported to be correct ??2. Patient tolerated the procedure well, was extubated, breathing spontaneously and without difficulty and was transferred to postanesthesia care in stable condition. Anesthesia GETA and local Pathology / specimen Other (Appendix) Estimated Blood Loss 5 Condition Stable Disposition PACU Surgeon Armaan Sneed MD Surgical Staff Operation Date: 05/26/24 16:00 Case Staff Anesthesiologist: Ian Rodrigues RN First Assistant: Keesha Salazar
--- NOTE | 2024-05-26 15:46 | SUR.PHASEI ---
pt received from OR in recovery bay 4. pt asleep but responds to voice, breathing unlabored on oxymask 6l. v/s stable. pt dressing to abd x3 cdi. report received from Dr. Rodrigues and Abdelrahman HYATT.
--- NOTE | 2024-05-26 16:13 | SUR.PHASEI ---
pt able to tolerate oral fluids without difficulty swallowing or nausea/vomiting.
[2024-05-26] MEDS: fentaNYL CIT INJ 50 mCg/ML AMP 2ML 25 MCG IV (16:18)
--- NOTE | 2024-05-26 16:46 | SUR.PHASEII ---
pt awake and alert, breathing unlabored on room air. v/s stable. pt dressing to abd x3 cdi. pt able to ambulate to wheelchair with steady gait. d/c instructions given with s/o Fadumo and mother in room, all questions answered. pt d/c via wheelchair with all belongings.
== END 2024-05-26 16:46 | disposition home or self-care (01) ==
LOC: SERX 05-26 03:30 → S2EX 05-26 07:23
PROVIDERS: Physician Assistant; Emergency Provider Emergency Medicine; PCP Family Medicine; Referring Provider Surgery; Visit Provider Surgery
PROC: 0DTJ4ZZ Resection of Appendix, Percutaneous Endoscopic Approach (ICD-10-PCS; CPT 44970; principal; 2024-05-26 16:00)
DX: K35.30 Acute appendicitis with localized peritonitis, without perforation or gangrene (principal)
CPT/HCPCS: 44970; 36415; 71045; 74177; 76705; 80053; 80307; 81001; 81025; 82150; 83605; 83690; 83735; 84145; 85025; 85652; 86140; 87040; 87077; 87186; 87400; 87811; 96361; 96374; 96375; 99285; A4217; A4649; J0694; J1100; J1885; J2250; J2270; J2405; J2543; J2704; J3010; J3480; J3490; J7030; J7050; Q9967; A9270

== ENCOUNTER 2024-11-03 17:43 | Emergency (ER) | payer MEDICAID, SELFPAY ==
[2024-11-03 18:31] VITALS: BP 131/84; PULSE 63; RESP 17; TEMP 36.9; O2SAT 100
[2024-11-03] MEDS: CYCLObenzaPRINE 5 MG TABLET PO (18:50)
[2024-11-03] MEDS: HYDROcodone/APAP 5/325 TABLET 1 TAB PO (18:50)
--- NOTE | 2024-11-03 19:35 | EDNOTE_ITS ---
ED Back Injury Pain RME/HPI General Chief Complaint: Back Pain/Injury Stated Complaint: LOWER BACK PAIN SINCE YESTERDAY Time Seen by Provider: 11/03/24 18:42 Arrival date/time: 11/03/24 17:43 29F with no significant PMH presents to ED with 2 days of low back pain w/o fall/trauma. Patient also denies hematuria/dysuria, paresthesia, and bowel/bladder incontinence. Pain is worse with ROM. Patient does manual labor for work. Limitations: no limitations Related Data Previous Rx's ?Medication ?Instructions ?Recorded docusate sodium 100 mg capsule 100 mg PO BID #30 caps 05/26/24 (Colace) hydrocodone 5 mg-acetaminophen 325 1 tab PO Q6H PRN pa in (scale score 05/26/24 mg tablet 7-10) #10 tabs ibuprofen 600 mg tablet 600 mg PO Q8H PRN pain (scal e 05/26/24 score 4-6) #15 tabs Allergies Allergy/AdvReac Type Severity Reaction Status Date / Time No Known Allergies Allergy Verified 11/03/24 17:45 Review of Systems Review of Systems Systems Reviewed: All systems reviewed, normal except as documented Constitutional Constitutional: Reports system reviewed and no additional complaints, except as documented, Denies fever(s) and Denies headache(s) ENT Ears, Nose, Mouth, and Throat: Denies disequilibrium and Denies headache(s) Cardiovascular Cardiovascular: Reports system reviewed and no additional complaints, except as documented, Denies chest pain and Denies dyspnea Respiratory Respiratory: Reports system reviewed and no additional complaints, except as documented, Denies cough and Denies dyspnea Gastrointestinal Gastrointestinal: Reports system reviewed and no additional complaints, except as documented, Denies abdominal pain, Denies nausea and Denies vomiting Musculoskeletal Musculoskeletal: Reports as per HPI and Reports back pain Neurologic Neurologic: Reports system reviewed and no additional complaints, except as documented, Denies confusion, Denies disequilibrium and Denies headache(s) Psychiatric Psychiatric: Denies confusion Past Medical History Past Medical History NEUROLOGIC: Negative Neurological Disorders or Seizures CARDIAC: Negative Cardiac Disorders or Congestive Heart Failure RESPIRATORY: Negative Chronic Obstructive Pulmonary Disease (COPD) or Asthma GASTROINTESTINAL: Negative Gastrointestinal Disorders GENITOURINARY: Negative Genitourinary Disorders or Renal Disease MUSCULOSKELETAL: Negative Musculoskeletal Disorders ENDOCRINE: Negative Endocrine Disorders, Diabetes Mellitus Type 1 or Diabetes Mellitus Type 2 HEMATOLOGIC: Negative Blood Disorders or Sickle Cell Disease OTHER HISTORY: Negative Blood Transfusions, Blood Transfusion Reaction or Anesthesia Reactions Family History FAMILY HISTORY: Negative Family Cardiac Disorders Surgical History SURGICAL: Negative Cardiac Surgery, Endocrine Surgery, Ear Surgery, Abdominal Surgery, Nephrectomy, Joint Replacement or Neurologic Surgery Social History SMOKING STATUS: Never smoker SUBSTANCE USE: does not use ED Exam General Limitations: Present no limitations General appearance: Present alert and in no apparent distress Head Head exam: Present atraumatic Eye Eye exam: Present normal appearance, PERRL and EOMI ENT ENT exam: Present normal exam, normal oropharynx and mucous membranes moist Neck Neck exam: Present normal inspection, full ROM and trachea midline Chest Chest inspection: Present normal inspection and symmetric chest wall rise Respiratory Respiratory exam: Present normal lung sounds bilaterally Cardiovascular Cardiovascular exam: Present regular rate, normal rhythm and normal heart sounds Abdominal Exam Abdominal exam: Present soft and normal bowel sounds Extremities Exam Extremities exam: Present normal inspection and full ROM Back Exam Back exam: Present normal inspection and full ROM Neurological Exam Neurological exam: Present alert, oriented X3 and CN II-XII intact Psychiatric Psychiatric exam: Present normal affect and normal mood Skin Skin exam: Present warm, dry, intact and normal color Course Quality Measures none Orders Category Date Time Status CYCLObenzaPRINE [Flexeril] Med 11/03/24 18:42 Discontinued 5 mg PO X1 ONE HYDROcodone*/APAP 5/325 [Lando 5/325] Med 11/03/24 18:42 Discontinued 1 tab PO X1 ONE Vital Signs Vital signs: Vital Signs Temperature 98.4 F 11/03/24 18:31 Pulse Rate 63 11/03/24 18:31 Respiratory Rate 17 11/03/24 18:31 Blood Pressure 131/84 H 11/03/24 18:31 Pulse Oximetry (%) 100 11/03/24 18:31 Oxygen Delivery Method Room Air 11/03/24 18:31 O2 at 100% on RA and WNLs Back Pain / Injury MDM Narrative MDM Narrative:: 29F with no significant PMH presents to ED with 2 days of low back pain w/o fall/trauma. Patient also denies hematuria/dysuria, paresthesia, and bowel/bladder incontinence. Pain is worse with ROM. Patient does manual labor for work. Physical exam reveals normal ROM of back. Gait normal. Patient is afebrile, calm, and alert. Meds and ip counsel given. Patient data External records reviewed:: [facility] previous records Clinical information provided by:: patient Social determinants that could affect healthcare access:: none Patient has the following chronic illnesses:: none How is presenting disease/condition affected by chronic disease/condition?: no chronic disease Evaluation data The following diagnostics were reviewed and interpreted by me:: other (specify) (none) Lab and/or radiology exams considered but not ordered:: not ordered Interpretation Summary: n/a Medications / Prescriptions Medications or Prescriptions considered but not ordered:: ordered Medication administrations:: Medication Administration History Discontinued Medications Hydrocodone Bitart/Acetaminophen (Hydrocodone/Apap 5/325 Tablet) 1 tab PO X1 ONE Stop: 11/03/24 18:43 Last Admin: 11/03/24 18:50 Dose: 1 tab Documented By: NOHEMI Cyclobenzaprine HCl (Cyclobenzaprine 5 Mg Tablet) 5 mg PO X1 ONE Stop: 11/03/24 18:43 Last Admin: 11/03/24 18:50 Dose: 5 mg Documented By: NOHEMI above Consultations Consultation(s) initiated? (list below): No Diagnosis Differential diagnosis back pain/injury: lumbar radiculopathy, sciatica, strain of lumbar region, renal colic, pyelonephritis, thoracic back pain, AAA and discitis Most likely diagnosis given after review of the tests above:: strain of lumbar region Admission Indicated Admission indicated?: not indicated Admission Request Was there a request for admission?: No Disposition Plan Disposition Plan: Discharge Discharge Attestation Discharge Attestation: The patient and all family members were given an opportunity to ask questions and understood the discharge instructions. Discharge instructions specifically effects, indications for sooner follow up or return to the emergency department, and the expected course of current diagnosis. Patient condition: Stable Discharge Plan Plan Patient Disposition: HOME (Self Care) Discharge Disposition comment: Stable Prescriptions/Referrals Prescriptions/Med Rec: No Action docusate sodium [Colace] 100 mg capsule 100 mg PO BID Qty: 30 0RF ibuprofen 600 mg tablet 600 mg PO Q8H PRN (Reason: pain (scale score 4-6)) Qty: 15 0RF hydrocodone-acetaminophen 5-325 mg tablet 1 tab PO Q6H MDD 4 PRN (Reason: pain (scale score 7-10)) Qty: 10 0RF Referrals: No Primary/Family,Physician [Primary Care Provider] - In 1 week Problem List Clinical Impression: Strain of lumbar region Patient/Caregiver Discharge Instructions Education Materials: ED Back Sprain/Strain Additional Instructions: Please follow-up with PCP within 24-48 hours and return immediately if symptoms worsen. If problem persists, recommend outpatient PT and/or MRI follow-up. In the meantime, rest, use ice/heat, and/or compression. Print Language: Estonian Stand Alone Forms: Work/School Release, Patient Portal Info Letter PA/PRINCIPAL EMBEDDED SOFTWARE ENGINEER Supervising Physician PA/PRINCIPAL EMBEDDED SOFTWARE ENGINEER Supervising Physician: Dr. Hogan
== END 2024-11-03 19:24 | disposition home or self-care (01) ==
PROVIDERS: Emergency Provider Emergency Medicine
DX: S39.012A Strain of muscle, fascia and tendon of lower back, initial encounter (principal); X58.XXXA Exposure to other specified factors, initial encounter
CPT/HCPCS: 99283; A9270